=== PATIENT | female | born 1990 | race African-American/Black ===

== ENCOUNTER 2017-01-24 23:41 | Emergency (ER) | payer OTHER ==
[2017-01-24 23:55] VITALS: BP 98/62
--- NOTE | 2017-01-25 00:14 | PHYS DOC ---
Past History Past Medical History: No Pertinent History, UTI Past Surgical History: No Surgical History Smoking: Non-smoker Alcohol Use: Occasionally Drug Use: None Adult General Chief Complaint Chief Complaint: SORE THROAT HPI HPI Patient is a 26 year old F who presents with right ear pain and a sore throat for the past week. Patient is a half months . Patient states she feels like she is a blockage in her right ear. Patient denies any fevers. Patient denies any nausea/vomiting/diarrhea. Patient denies any chest pain/shortness of breath. Patient denies any vaginal bleeding or abdominal cramping. Pertinent exam findings: Cerumen impaction right ear Posterior pharynx nonerythematous tonsils are not swollen and there is no exudate and no anterior cervical lymphadenopathy Abdomen shows a gravid uterus ED course: Patient was seen and evaluated, right ear was irrigated 0015: Ear was irrigated to remove the cerumen impaction 0030: TM was visualized which was non-erythematous and not bulging MDM: After reviewing the chart, CC/HPI/PMH, physical exam, do not believe the patient has acute bacterial upper respiratory tract infection warranting further workup and/or admission at this time. I do not believe the patient needs antibiotics at this time and her symptoms are most likely due to a viral URI and a right cerumen impaction. Patient is stable for discharge. Recommend patient follow PCP in one to 2 days. Additional verbal discharge instructions were provided to the patient and that if symptoms get worse or any new symptoms arise that are worrisome to the patient she is to return to the emergency room immediately Review of Systems Review of Systems GEN: Denies fevers, chills, sweats HEENT: Right ear pain and sore throat CV: Denies chest pain RESP: Denies shortness of air, cough GI: Denies n/v/d NEURO: Denies confusion, dizziness MSK: Denies weakness, joint pain/swelling Allergies Allergies Allergies Coded Allergies Type Severity Reaction Last Updated Verified No Known Drug Allergies 01/16/14 No Physical Exam Physical Exam GEN.: No apparent distress. Alert and oriented. HEENT: Head is normocephalic, atraumatic, right ear canal cerumen impaction, posterior pharynx non-erythematous no tonsil swelling, no exudate, no cervical lymph adenopathy NECK: Supple. LUNGS: CTAB. HEART: RRR, S1, S2 present. Peripheral pulses intact ABDOMEN: Soft, nontender. Positive bowel sounds. Gravid uterus EXTREMITIES: Without any cyanosis. NEUROLOGIC: Normal speech, normal tone PSYCHIATRIC: Normal affect, normal mood. SKIN: No ulcerations EKG EKG [] Radiology/Procedures Radiology/Procedures [] Course & Med Decision Making Course & Med Decision Making Pertinent Labs and Imaging studies reviewed. (See chart for details) [] Dragon Disclaimer Dragon Disclaimer This chart was dictated in whole or in part using Voice Recognition software in a busy, high-work load, and often noisy Emergency Department environment. It may contain unintended and wholly unrecognized errors or omissions. Departure Departure: Impression: Primary Impression: Viral pharyngitis Additional Impression: Impacted cerumen of right ear Disposition: 01 HOME, SELF-CARE Condition: IMPROVED Referrals: ADDIE CRANDALL MD (PCP) Patient Instructions: Cerumen Impaction Additional Instructions: Please follow up with her family doctor in one to 2 days and return symptoms increase Problem Qualifiers GENNA EM DO Jan 25, 2017 00:14
== END 2017-01-25 00:34 | disposition home or self-care (01) ==
LOC: ER 23:41
DX: O26.899 Other specified pregnancy related conditions, unspecified trimester (principal); H61.21 Impacted cerumen, right ear; B34.9 Viral infection, unspecified; Z3A.00 Weeks of gestation of pregnancy not specified
CPT/HCPCS: 69209; 99282

== ENCOUNTER 2017-01-29 01:45 | Emergency (ER) | payer OTHER ==
[~2017-01-29] VITALS: Ht 170.2 cm; Wt 73.5 kg
[2017-01-29 01:45] VITALS: BP 115/68
--- NOTE | 2017-01-29 02:14 | PHYS DOC ---
General Chief Complaint: SORE THROAT Stated Complaint: COUGHING SORE THROAT Time Seen by MD: 01:57 Source: patient, old records Exam Limitations: no limitations Problems: History of Present Illness Initial Comments Patient is a 26-year-old female 35 weeks gestation who returns to the ED for sore throat cough and ear pain. Patient states and ED records correlate that she was here 5 days ago on February 03 with the same complaints. At that time her physical exam was unremarkable aside from right ear cerumen impaction. The ear was lavaged the patient was discharged home with supportive care. She was advised to follow-up with her primary care physician in 2 days which she has not done. Patient states that she has not gotten any better from her prior ED visit. She complains of sore throat and bilateral ear pain as well as a dry cough. She has no trouble breathing, sore throat hurts limiting her by mouth solid intake but she's been able to drink plenty of liquids. She has no headache or neck stiffness no dysphagia or dyspnea on exertion no measured fevers no nausea vomiting or diarrhea. She says she hasn't been taking anything for this because she wasn't sure what she could take. Timing/Duration: last week Severity: moderate Location: ear (R), ear (L), throat Prearrival Treatment: no prearrival treatment Modifying Factors: worse with coughing, improves with rest Associated Symptoms: change in hearing, cough, poor solids intake, sore throat Allergies: Coded Allergies: No Known Drug Allergies (Unverified , 01/16/14) Past Medical History Medical History: no pertinent history Surgical History: no surgical history LMP (Females 10-50): (35 wks) Family History Significant Family History: no pertinent family hx Social History Smoker: non-smoker Alcohol: occasionally Drugs: none Constitutional: denies chills, denies diaphoresis, denies fever, malaise Eyes: denies blindness, denies blurred vision, denies drainage Ears: see HPI, denies dizziness, pain Nose: denies clots, congestion, denies epistaxis, denies pain Throat: pain, denies swelling, denies discharge, denies neck stiffness, denies hoarse, painful swallowing, denies difficulty with fluids Respiratory: cough, denies shortness of breath, denies wheezing Cardiovascular: denies chest pain, denies palpitations, denies syncope Gastrointestinal: denies abdominal pain, denies diarrhea, denies nausea, denies vomiting Musculoskeletal: denies back pain, denies joint swelling, denies muscle pain, denies neck pain Neurological: denies headache, denies numbness, denies paresthesia Physical Exam General Appearance: WD/WN, no apparent distress Eyes: bilateral eye normal inspection, bilateral eye PERRL, bilateral eye EOMI Ears: bilateral ear auricle normal, bilateral ear canal normal, bilateral ear other (serous fluid noted bilaterally) Nose: normal inspection Mouth/Throat: other (pharynx is beefy red no exudate no airway compromise) Neck: supple, trachea midline, lymphadenopathy (R), lymphadenopathy (L) Cardiovascular/Respiratory: normal peripheral pulses, no respiratory distress 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 I discussed medications approve during the patient expressed understanding of the treatment plan. Departure Time of Disposition: 02:10 Disposition: 01 HOME, SELF-CARE Diagnosis: pharyngitis, serous otitis b/l, Condition: GOOD Patient Instructions: Medicines During , Serous Otitis Media, Viral and Bacterial Pharyngitis, [id number] Additional Instructions: Please review the patient education materials dispensed TU by the ED staff. Take note of the medications allowed during handout. Rest, no strenuous activity. Off work through January 30. Aggressive hydration with Gatorade and water. Continue vitamins. [id number] Tylenol, diphenhydramine, and analgesic throat sprays as needed for symptom control. Prescription: Z-Dale take with food as directed. 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 Follow-up with your primary care physician in 10-14 days for recheck. Return to the ED with new or changing symptoms. ADELSO BLAND DO Jan 29, 2017 02:14
[2017-01-29] MEDS ORDERED: AZITHROMYCIN 250 MG TABLET. PO ONE (02:15)
[2017-01-29] MEDS ORDERED: AZITHROMYCIN 250 MG TABLET. ONE (02:18)
== END 2017-01-29 02:20 | disposition home or self-care (01) ==
LOC: ER 01:45
DX: O26.893 Other specified pregnancy related conditions, third trimester (principal); H65.93 Unspecified nonsuppurative otitis media, bilateral; J02.9 Acute pharyngitis, unspecified; Z3A.35 35 weeks gestation of pregnancy
CPT/HCPCS: 99283; J0456

== ENCOUNTER 2017-05-18 20:56 | Emergency (ER) | payer OTHER ==
[~2017-05-18] VITALS: Ht 170.2 cm; Wt 73.5 kg
[2017-05-18 22:13] LABS: BASO % 0 % (0-3); EOS # 0.1 x10^3/uL (0.0-0.7); EOS % 2 % (0-3); HEMATOCRIT 38.3 % (36.0-47.0); HEMOGLOBIN 13.7 g/dL (12.0-15.5); LYMPH # 2.8 x10^3/uL (1.0-4.8); LYMPH % 57 % (24-48); MEAN CORPUSCULAR HEMOGLOBIN 35 pg (25-35); MEAN CORPUSCULAR HGB CONC 36 g/dL (31-37); MEAN CORPUSCULAR VOLUME 97 fL (79-100); MONO # 0.4 x10^3/uL (0.0-1.1); MONO % 8 % (0-9); NEUT # 1.6 x10^3uL (1.8-7.7); NEUT % 33 % (31-73); PLATELET COUNT 248 x10^3/uL (140-400); RED BLOOD COUNT 3.97 x10^6/uL (3.50-5.40); RED CELL DISTRIBUTION WIDTH 12.6 % (11.5-14.5); WHITE BLOOD COUNT 4.9 x10^3/uL (4.0-11.0)
[2017-05-18 22:22] LABS: ALBUMIN 4.3 g/dL (3.4-5.0); ALBUMIN/GLOBULIN RATIO 1.2 (1.0-1.7); CALCIUM 8.8 mg/dL (8.5-10.1); CREATININE 0.9 mg/dL (0.6-1.0); GFR 93.1; POTASSIUM 3.5 mmol/L (3.5-5.1); TOTAL BILIRUBIN 0.5 mg/dL (0.2-1.0); TOTAL PROTEIN 7.9 g/dL (6.4-8.2)
[2017-05-18 22:24] LABS: BILIRUBIN,URINE NEG (NEG); CLARITY,URINE CLEAR; COLOR,URINE YELLOW; GLUCOSE,URINE NEG (NEG); NITRITE,URINE NEG (NEG); UROBILINOGEN,URINE 0.2 mg/dL (0.2 mg/dL)
[2017-05-18 22:25] LABS: BACTERIA,URINE FEW /HPF (0-FEW); RBC,URINE 0 /HPF (0-2); SQUAMOUS EPITHELIAL CELL,UR OCC /LPF; WBC,URINE OCC /HPF (0-4)
[2017-05-18] MEDS ORDERED: LIDO:MAALOX 1:1 20 ML SINGLE DOSE PO ONE (22:30)
[2017-05-18] MEDS ORDERED: CONTRAST GIVEN MC PRN (22:30)
[2017-05-18] MEDS ORDERED: FAMOTIDINE 20 MG/2 ML VIAL IVP ONE (22:30)
[2017-05-18] MEDS ORDERED: KETOROLAC 30 MG/ML VIAL. IV ONE (22:30)
[2017-05-18] MEDS ORDERED: ONDANSETRON PF 4 MG/2 ML VIAL. IV ONE (22:30)
--- NOTE | 2017-05-18 22:37 | PHYS DOC ---
General Chief Complaint: ABDOMINAL PAIN Stated Complaint: ABD/CHEST PAIN Time Seen by MD: 21:32 Source: patient Exam Limitations: no limitations Problems: History of Present Illness Initial Comments Pt is 26/F to ED c/o abdominal pain. Pt states for past 7-10 days she's had worsening abdominal pain. She says pain is left upper abdomen and began as mild, described as "tight." Since then it has steadily worsened, remaining LUQ abdomen and today the pain was so great she came for evaluation. No n/v/d, no travel or bad food exposure, no fever/ malaise/cough/cp/sob/HAIR/tick bites/rash/arthralgia. No relation to type or timing of PO intake. Appetite had been fine, but decreased today last PO intake about noon mashed potatoes and a roll. Last BM yesterday "normal" denies urine/bowel symptoms. No known sick contacts similar symptoms, pt normally healthy, no prearrival treatment. LUQ/epigastric pain in ED 03/28 sharp /tight no worsening/relieving factors known. I discussed GERD initially with pt, she says she had that during and is certain it isn't GERD related. ED VS normal Timing/Duration: getting worse, other Severity: severe Modifying Factors: improves with other Associated Symptoms: other Allergies: Coded Allergies: No Known Drug Allergies (Unverified , 01/16/14) Past Medical History Medical History: other Surgical History: no surgical history (CS) Family History Significant Family History: no pertinent family hx Social History Smoker: non-smoker Alcohol: none Drugs: none Review of Systems Constitutional: denies chills, denies diaphoresis, denies fever, denies malaise Respiratory: denies cough, denies shortness of breath Cardiovascular: denies chest pain, denies palpitations, denies syncope Gastrointestinal: see HPI Genitourinary: denies discharge, denies dysuria, denies frequency, denies hematuria Musculoskeletal: denies back pain, denies joint swelling, denies neck pain Psychiatric/Neurological: denies headache, denies numbness, denies paresthesia Hematologic/Lymphatic: denies blood clots, denies easy bleeding, denies easy bruising Physical Exam General Appearance: WD/WN, no apparent distress Eyes: bilateral eye normal inspection, bilateral eye PERRL, bilateral eye EOMI Ear, Nose, Throat: hearing grossly normal, normal ENT inspection, normal pharynx Neck: non-tender, supple Respiratory: normal breath sounds, no respiratory distress Cardiovascular: normal peripheral pulses, regular rate, rhythm Gastrointestinal: soft (epigastric/LUQ TTP no r/g/mass, mild RLQ TTP neg alvarenga , BS normal) Back: no CVA tenderness, no vertebral tenderness Extremities: non-tender, normal inspection, no pedal edema, no calf tenderness , pelvis stable 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 Interpreted by Dr Bland. Chest AP: no acute cardiopulmonary abnormality, interpreted by Dr Bland PATIENT: CHARLIE VARMA ACCOUNT: [id number] : 1990 LOCATION: ER AGE: 26 SEX: F EXAM STATUS: REG ER ORD. PHYSICIAN: ADELSO BLAND DO REASON: periumbilical pain/anorexia, RLQ TTP PROCEDURE: CT ABD PELV W/ IV CONTRST ONLY CT abdomen and pelvis with contrast: Reason for examination: Severe low abdominal pain, mostly left-sided. Periumbilical pain. Anorexia. Helical images were obtained through the abdomen and pelvis with intravenous administration of 75 cc Omnipaque 300. Reconstruction was performed in sagittal and coronal planes. Exposure: One or more of the following individualized dose reduction techniques were utilized for this examination: 1. Automated exposure control 2. Adjustment of the mA and/or kV according to patient size 3. Use of iterative reconstruction technique. The lung bases are clear. The heart size is normal with no pericardial effusion evident. No abnormality seen at the liver, gallbladder, pancreas, spleen or adrenal glands. The abdominal aorta and inferior vena cava show no abnormalities. The intestinal tract shows no abnormally dilated loops of bowel or thickened bowel chou. No bowel obstruction is seen. The appendix is not specifically identified due to the limited intra-abdominal fat and crowding of the intra-abdominal structures. The kidneys show no renal masses, renal calculi, or hydronephrosis. No abnormality seen at the bladder, uterus or adnexa. No free fluid or free air is seen in the abdomen or pelvis. No acute abnormality seen in the bone structures. No acute soft tissue abnormalities are evident. IMPRESSION: No acute abnormality evident in the abdomen or pelvis. Electronically signed by: Mary José MD (05/18/2017 11:16 PM) [facility] DICTATED AND SIGNED BY: MARY JOSÉ MD DATE: 05/18/17 [id number] CC: ADDIE CRANDALL MD; ADELSO BLAND DO ~ Labs/urine unremarkable Pt checked on several times thru ED course, noted to be resting comfortably no new or progressive symptoms. GERD discussed as probable etiology, no emergent condition requiring further ED workup. Departure Time of Disposition: 00:07 Disposition: 01 HOME, SELF-CARE Diagnosis: abdominal pain Condition: GOOD Patient Instructions: Abdominal Pain (Nonspecific), Gastroesophageal Reflux Disease, Adult, [id number] Additional Instructions: No specific cause for your symptoms was identified tonight as blood, urine, cat scan, and x-ray studies were all unremarkable. As mentioned, some aspects of your symptoms appear to be related to gastroesophageal reflux. (see handout). OTC pepcid, maalox, as needed dosing per package instructions. Follow up with your doctor this week if symptoms persist, as nonemergent outpatient referral may be indicated. Return to ED with new or changing symptoms. ADELSO BLAND DO May 18, 2017 22:37
[2017-05-18 22:38] LABS: AMPHETAMINE/METHAMPHETAMINE NEG (NEG); BARBITURATES NEG (NEG); BENZODIAZEPINES NEG (NEG); CANNABINOIDS NEG (NEG); COCAINE NEG (NEG); METHADONE NEG (NEG); OPIATES NEG (NEG); PHENCYCLIDINE NEG (NEG)
[2017-05-18] MEDS ORDERED: IOHEXOL 300 MG/ML 75 ML VIAL. IV ONE (23:00)
--- NOTE | 2017-05-18 23:20 | RAD ---
CT abdomen and pelvis with contrast: Reason for examination: Severe low abdominal pain, mostly left-sided. Periumbilical pain. Anorexia. Helical images were obtained through the abdomen and pelvis with intravenous administration of 75 cc Omnipaque 300. Reconstruction was performed in sagittal and coronal planes. Exposure: One or more of the following individualized dose reduction techniques were utilized for this examination: 1. Automated exposure control 2. Adjustment of the mA and/or kV according to patient size 3. Use of iterative reconstruction technique. The lung bases are clear. The heart size is normal with no pericardial effusion evident. No abnormality seen at the liver, gallbladder, pancreas, spleen or adrenal glands. The abdominal aorta and inferior vena cava show no abnormalities. The intestinal tract shows no abnormally dilated loops of bowel or thickened bowel chou. No bowel obstruction is seen. The appendix is not specifically identified due to the limited intra-abdominal fat and crowding of the intra-abdominal structures. The kidneys show no renal masses, renal calculi, or hydronephrosis. No abnormality seen at the bladder, uterus or adnexa. No free fluid or free air is seen in the abdomen or pelvis. No acute abnormality seen in the bone structures. No acute soft tissue abnormalities are evident. IMPRESSION: No acute abnormality evident in the abdomen or pelvis. Electronically signed by: Mary Serna MD (05/18/2017 11:16 PM) [place] [id number]
[2017-05-19 00:32] VITALS: BP 107/65
--- NOTE | 2017-05-19 05:20 | EKG ---
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
--- NOTE | 2017-05-19 08:08 | RAD ---
PA and lateral chest. History: Epigastric and chest discomfort PA and lateral views were taken of the chest. Lungs are clear. Heart is normal in size. There is no pleural effusion. There is contrast in the renal collecting systems from the CT. Impression: 1. No infiltrates noted.
== END 2017-05-19 00:45 | disposition home or self-care (01) ==
LOC: ER 20:56
DX: R10.12 Left upper quadrant pain (principal)
CPT/HCPCS: 36415; 71020; 74177; 80053; 80307; 81001; 81025; 83690; 85025; 93005; 96374; 96375; 99285; J1885; J2405; Q9967; S0028; G0479

== ENCOUNTER 2017-11-27 12:40 | Emergency (ER) | payer SELFPAY ==
[~2017-11-27] VITALS: Ht 167.6 cm; Wt 61.2 kg
[2017-11-27] MEDS ORDERED: methylPREDNISolone SOD SUCC PF 125 MG/2 ML VIAL. ONE (12:43)
[2017-11-27] MEDS ORDERED: diphenhydrAMINE 50 MG/ML VIAL ONE (12:44)
[2017-11-27] MEDS ORDERED: FAMOTIDINE 20 MG/2 ML VIAL ONE (12:44)
[2017-11-27] MEDS ORDERED: diphenhydrAMINE 50 MG/ML VIAL IV ONE (13:00)
[2017-11-27] MEDS ORDERED: 0.9 % SODIUM CHLORIDE 10 ML DISP.SYRIN. IV PRN (13:00)
[2017-11-27] MEDS: IV NORMAL SALINE 1,000ML 1,000 ML IV SCH (13:05)
[2017-11-27 13:07] LABS: BASO % 1 % (0-3); EOS # 0.1 x10^3/uL (0.0-0.7); EOS % 2 % (0-3); HEMATOCRIT 43.9 % (36.0-47.0); HEMOGLOBIN 15.2 g/dL (12.0-15.5); LYMPH # 2.1 x10^3/uL (1.0-4.8); LYMPH % 54 % (24-48); MEAN CORPUSCULAR HEMOGLOBIN 34 pg (25-35); MEAN CORPUSCULAR HGB CONC 35 g/dL (31-37); MEAN CORPUSCULAR VOLUME 98 fL (79-100); MONO # 0.5 x10^3/uL (0.0-1.1); MONO % 13 % (0-9); NEUT # 1.2 x10^3uL (1.8-7.7); NEUT % 30 % (31-73); PLATELET COUNT 247 x10^3/uL (140-400); RED BLOOD COUNT 4.48 x10^6/uL (3.50-5.40); RED CELL DISTRIBUTION WIDTH 12.1 % (11.5-14.5); WHITE BLOOD COUNT 3.9 x10^3/uL (4.0-11.0)
[2017-11-27] MEDS ORDERED: FAMOTIDINE 20 MG/2 ML VIAL IVP ONE (13:15)
[2017-11-27] MEDS ORDERED: methylPREDNISolone SOD SUCC PF 125 MG/2 ML VIAL. IV ONE (13:15)
[2017-11-27 13:18] LABS: ALBUMIN 4.4 g/dL (3.4-5.0); ALBUMIN/GLOBULIN RATIO 1.2 (1.0-1.7); CALCIUM 9.1 mg/dL (8.5-10.1); CREATININE 0.7 mg/dL (0.6-1.0); GFR 123.4; POTASSIUM 3.6 mmol/L (3.5-5.1); TOTAL BILIRUBIN 0.6 mg/dL (0.2-1.0); TOTAL PROTEIN 8.1 g/dL (6.4-8.2)
[2017-11-27] MEDS ORDERED: ONDANSETRON PF 4 MG/2 ML VIAL. IV ONE (13:20)
--- NOTE | 2017-11-27 13:28 | PHYS DOC ---
Past History Past Medical History: No Pertinent History Past Surgical History: No Surgical History Smoking: Non-smoker Alcohol Use: None Drug Use: None Adult General Chief Complaint Chief Complaint: ALLERGIC REACTION HPI HPI 27-year-old female patient states she ate banana and orange and peanut butter had organic getting chills and developed generalized pruritic rash and one episode of vomiting. Patient complaining of discomfort feeling in epigastric area associated with shortness of breath without cough and throat swelling. Patient states she had history of mild allergic reaction but never had allergic reaction the same as today. Review of Systems Review of Systems Constitutional: Denies fever or chills [] Eyes: Denies change in visual acuity, redness, or eye pain [] HENT: Denies nasal congestion or sore throat [] Respiratory: Denies cough , reports shortness of breath [] Cardiovascular: No additional information not addressed in HPI [] GI: Denies abdominal pain, nausea, vomiting, bloody stools or diarrhea [] : Denies dysuria or hematuria [] Musculoskeletal: Denies back pain or joint pain [] Integument: Reports rash and itching Neurologic: Denies headache, focal weakness or sensory changes [] Endocrine: Denies polyuria or polydipsia [] All other systems were reviewed and found to be within normal limits, except as documented in this note. Current Medications Current Medications Current Medications Medications (Trade) Dose Ordered Sig/Rafal Start Time Stop Time Status Last Admin Dose Admin Diphenhydramine HCl (Benadryl) 50 mg STK-MED ONCE 11/27/17 12:44 11/27/17 12:45 DC Famotidine (Pepcid Vial) 20 mg STK-MED ONCE 11/27/17 12:44 11/27/17 12:45 DC Methylprednisolone Sodium Succinate (SOLU-Medrol 125MG VIAL) 125 mg STK-MED ONCE 11/27/17 12:43 11/27/17 12:44 DC Ondansetron HCl (Zofran) 4 mg 1X ONCE 11/27/17 13:00 11/27/17 13:01 UNV Allergies Allergies Allergies Coded Allergies Type Severity Reaction Last Updated Verified No Known Drug Allergies 11/27/17 No Physical Exam Physical Exam Constitutional: Well developed, well nourished, moderate distress, non-toxic appearance. [] HENT: Normocephalic, atraumatic, bilateral external ears normal, oropharynx moist, no oral exudates, nose normal. [] Eyes: PERRLA, EOMI, conjunctiva normal, no discharge. [] Neck: Normal range of motion, no tenderness, supple, no stridor. [] Cardiovascular:Heart rate regular rhythm, no murmur [] Lungs & Thorax: Bilateral breath sounds clear to auscultation [] Abdomen: Bowel sounds normal, soft, no tenderness, no masses, no pulsatile masses. [] Skin: Generalized pruritus take rash and hives in her face and neck and trunk and back and genital area] Back: No tenderness, no CVA tenderness. [] Extremities: No tenderness, no cyanosis, no clubbing, ROM intact, no edema. [] Neurologic: Alert and oriented X 3, normal motor function, normal sensory function, no focal deficits noted. [] Psychologic: Affect normal, judgement normal, mood normal. [] EKG EKG [] Radiology/Procedures Radiology/Procedures [] Course & Med Decision Making Course & Med Decision Making Pertinent Labs reviewed. (See chart for details) Evaluation of patient in ER showed 27-year-old female patient with generalized rash and itching after drinking organic grape juice with history of milder allergic reaction. Patient treated with IV fluid and Solu-Medrol, Pepcid, Zofran and Benadryl and her rash resolved. Patient tolerated oral intake. Plan discharge patient home with diagnosis of allergic reaction. [] Dragon Disclaimer Dragon Disclaimer This electronic medical record was generated, in whole or in part, using a voice recognition dictation system. Departure Departure: Impression: Primary Impression: Allergic reaction Additional Impression: Leukopenia Disposition: HOME, SELF-CARE (At 1354) Condition: IMPROVED Referrals: ADDIE CRANDALL MD (PCP) Patient Instructions: Allergies, Generic, Allergy Tests, Rash Additional Instructions: Drink plenty of liquids Follow-up with your primary care physician in 3-5 days Return to ER if not getting better Scripts Hydroxyzine Hcl (HYDROXYZINE HCL) 25 Mg Tablet 1 TAB PO TID, #30 TAB Prov: LALY LEON MD 11/27/17 Problem Qualifiers LALY LEON MD Nov 27, 2017 13:28
[2017-11-27 13:54] VITALS: BP 117/73
[2017-11-27] MEDS ORDERED: HYDR25TA PO (13:56)
== END 2017-11-27 14:06 | disposition home or self-care (01) ==
LOC: ER 12:40
DX: T78.49XA Other allergy, initial encounter (principal); D72.819 Decreased white blood cell count, unspecified; X58.XXXA Exposure to other specified factors, initial encounter
CPT/HCPCS: 36415; 80053; 85025; 96361; 96374; 96375; 99284; J1200; J2405; J2930; S0028; J7030

== ENCOUNTER 2018-01-03 10:52 | Emergency (ER) | payer OTHER ==
[~2018-01-03] VITALS: Ht 167.6 cm; Wt 61.2 kg
[~2018-01-03 10:52] MED LIST: HYDR25TA PO
[2018-01-03 11:11] VITALS: BP 100/54
[2018-01-03 11:33] LABS: BASO % 0 % (0-3); EOS # 0.2 x10^3/uL (0.0-0.7); EOS % 5 % (0-3); HEMOGLOBIN 14.1 g/dL (12.0-15.5); LYMPH % 41 % (24-48); MEAN CORPUSCULAR HEMOGLOBIN 34 pg (25-35); MEAN CORPUSCULAR HGB CONC 35 g/dL (31-37); MEAN CORPUSCULAR VOLUME 97 fL (79-100); MONO # 0.5 x10^3/uL (0.0-1.1); MONO % 11 % (0-9); NEUT # 2.1 x10^3uL (1.8-7.7); NEUT % 44 % (31-73); PLATELET COUNT 234 x10^3/uL (140-400); RED BLOOD COUNT 4.11 x10^6/uL (3.50-5.40); RED CELL DISTRIBUTION WIDTH 11.8 % (11.5-14.5); WHITE BLOOD COUNT 4.8 x10^3/uL (4.0-11.0)
--- NOTE | 2018-01-03 13:23 | RAD ---
Obstetrical ultrasound, 01/03/2018: HISTORY: Bleeding, Transabdominal and transvaginal scans were obtained. The uterus contains a single gestational sac. The gestational sac contains a yolk sac and a pole demonstrating a crown-rump length of 3 mm. This suggests a gestational age of 5 weeks and 6 days yielding a sonographic EDC of 08/29/2018. heart motion is evident with a heart rate of 82 bpm. There is a hypoechoic structure in the central uterine cavity adjacent to the gestational sac compatible with a moderate sized subchorionic hemorrhage. It measures 2.7 x 3.7 x 2.0 cm. The ovaries are of normal size. A 1.2 cm complicated cyst in the left ovary probably represents a collapsing hemorrhagic cyst. The adnexal regions are otherwise unremarkable. A trace amount of free fluid is noted in the cul-de-sac. IMPRESSION: 1. Single viable intrauterine fetus of 5-6 weeks gestational age. 2. Moderate-sized subchorionic hemorrhage. 3. Trace amount of free fluid in the pelvis. Electronically signed by: Karson Pelaez MD (01/03/2018 1:19 PM) [facility]
--- NOTE | 2018-01-03 13:27 | ED.ADGEN ---
Past History Past Medical History: No Pertinent History Past Surgical History: No Surgical History Smoking: Non-smoker Alcohol Use: None Drug Use: None Adult General Chief Complaint Chief Complaint Vaginal bleeding HPI HPI Patient is a P4, G3, estimated 4 week gestation female who presents with vaginal bleeding and pelvic cramping. Patient reports to positive home test this past week with stay of last menstrual period on 11/22/17. Cramping is currently described as mild. No dizziness lightheadedness, chest pain shortness of breath. Patient has not yet established with an OB[] Review of Systems Review of Systems Review symptoms as per history of present illness. All other review symptoms are negative. All other systems were reviewed and found to be within normal limits, except as documented in this note. Allergies Allergies Allergies Coded Allergies Type Severity Reaction Last Updated Verified No Known Drug Allergies 11/27/17 No Physical Exam Physical Exam Constitutional: Well developed, well nourished, no acute distress, non-toxic appearance. [] HENT: Normocephalic, atraumatic, bilateral external ears normal, oropharynx moist, no oral exudates, nose normal. [] Eyes: PERRLA, EOMI, conjunctiva normal, no discharge. [] Neck: Normal range of motion, no tenderness, supple, no stridor. [] Cardiovascular:Heart rate regular rhythm, no murmur [] Lungs & Thorax: Bilateral breath sounds clear to auscultation [] Abdomen: Bowel sounds normal, soft, no tenderness, no masses, no pulsatile masses. [] : Cervix closed, small amount of dark blood on external genitalia, no active bleeding products of conception. No discharge. [] Back: No tenderness, no CVA tenderness. [] Current Patient Data Vital Signs Vital Signs Date Time Temp Pulse Resp B/P (MAP) Pulse Ox O2 Delivery O2 Flow Rate FiO2 01/03/18 11:11 98.1 103 20 100/54 (69) 95 Room Air Lab Results Laboratory Tests Test 01/03/18 11:11 White Blood Count 4.8 x10^3/uL (4.0-11.0) Red Blood Count 4.11 x10^6/uL (3.50-5.40) Hemoglobin 14.1 g/dL (12.0-15.5) Hematocrit 40.0 % (36.0-47.0) Mean Corpuscular Volume 97 fL (79-100) Mean Corpuscular Hemoglobin 34 pg (25-35) Mean Corpuscular Hemoglobin Concent 35 g/dL (31-37) Red Cell Distribution Width 11.8 % (11.5-14.5) Platelet Count 234 x10^3/uL (140-400) Neutrophils (%) (Auto) 44 % (31-73) Lymphocytes (%) (Auto) 41 % (24-48) Monocytes (%) (Auto) 11 % (0-9) H Eosinophils (%) (Auto) 5 % (0-3) H Basophils (%) (Auto) 0 % (0-3) Neutrophils # (Auto) 2.1 x10^3uL (1.8-7.7) Lymphocytes # (Auto) 2.0 x10^3/uL (1.0-4.8) Monocytes # (Auto) 0.5 x10^3/uL (0.0-1.1) Eosinophils # (Auto) 0.2 x10^3/uL (0.0-0.7) Basophils # (Auto) 0.0 x10^3/uL (0.0-0.2) Maternal Serum HCG Beta Subunit 16857 mIU/mL (0-6) H EKG EKG [] Radiology/Procedures Radiology/Procedures [OB ultrasound less than 15 weeks. Single viable 5-6 week gestational . Moderate size subchorionic hemorrhage. Trace amount of free fluid in pelvis.] Course & Med Decision Making Course & Med Decision Making Pertinent Labs and Imaging studies reviewed. (See chart for details) [Threatened miscarriage with identified IUP. Supportive care, watchful waiting, OB follow-up recommended] Final Impression Final Impression 1. Vaginal bleeding in early 2. Subchorionic hemorrhage[] Dragon Disclaimer Dragon Disclaimer This electronic medical record was generated, in whole or in part, using a voice recognition dictation system. ROSIBEL AGUILAR DO January 03, 2018 13:27
== END 2018-01-03 13:38 | disposition home or self-care (01) ==
LOC: ER 10:52
DX: O20.8 Other hemorrhage in early pregnancy (principal); R10.2 Pelvic and perineal pain; Z3A.01 Less than 8 weeks gestation of pregnancy
CPT/HCPCS: 36415; 76801; 76817; 84702; 85025; 86900; 86901; 99285-25